=== PATIENT | male | born 1960 | race African-American/Black ===

== ENCOUNTER 2024-01-11 00:54 | Inpatient (IN) | payer MEDICARE, MEDICAID ==
[~2024-01-11] VITALS: Ht 177.8 cm; Wt 98.0 kg
[~2024-01-11 00:54] MED LIST: DILANTIN
[2024-01-11 02:50] LABS: BASOPHILS % 0.3 % (0.0-2.0); EOSINOPHILS % 0.1 % (0.0-5.0); HEMATOCRIT. 44.1 % (42.0-52.0); HEMOGLOBIN. 14.4 g/dL (14.0-18.0); LYMPHOCYTES % 5.8 % (20.0-50.0); MEAN CORPUSCULAR HEMOGLOBIN 30.6 pg (28.0-32.0); MEAN CORPUSCULAR HGB CONC 32.6 g/dL (31.0-37.0); MEAN CORPUSCULAR VOLUME 93.9 fL (80.0-94.0); MEAN PLATELET VOLUME 7.8 fl (7.4-10.4); MONOCYTES % 4.4 % (2.0-8.0); NEUTROPHILS % 89.4 % (40.0-76.0); PLATELET 298 x1000/uL (130-400); RED CELL DISTRIBUTION WIDTH 14.2 % (11.6-14.6); WHITE BLOOD COUNT 13.3 x1000/uL (4.5-11.0)
[2024-01-11 02:55] LABS: CHLORIDE 101 mEq/L (98-107); POTASSIUM 5.2 mEq/L (3.5-5.1); SODIUM 134 mEq/L (136-145)
[2024-01-11 02:56] LABS: CARBON DIOXIDE 27 mEq/L (21-32)
[2024-01-11 02:57] LABS: CALCIUM 9.1 mg/dL (8.7-10.4)
[2024-01-11 03:01] LABS: CREATININE 1.3 mg/dL (0.6-1.3); GLUCOSE 143 mg/dL (70-105)
[2024-01-11 03:02] LABS: UREA NITROGEN BLOOD 15 mg/dL (9-23)
[2024-01-11 03:07] LABS: DIFFERENTIAL COMMENT 1
[2024-01-11 03:34] LABS: BG CARBOXYHEMOGLOBIN 0.4 % (0.5-1.5); BG DEOXYHEMOGLOBIN 0.1 % (0.0-5.0); BG FRACTION INSPIRED OXYGEN 100; BG HCO3 ACT 24.2 mmol/L (22.0-26.0); BG METHEMOGLOBIN 0.4 % (0.0-1.5); BG OXYGEN SATURATION 99.9 % (92.0-98.5); BG OXYHEMOGLOBIN 99.1 % (94.0-97.0); BG PCO2 42.3 mmHg (35.0-45.0); BG PH 7.376 (7.350-7.450); BG PO2 311.8 mmHg (75.0-100.0); BG SAMPLE SITE LEFT RADIAL; BG TOTAL HEMOGLOBIN 14.8 g/dL (12.0-18.0); BG VENT MODE MASK - NRB
[2024-01-11 04:07] LABS: LACTIC ACID 3.6 mmol/L (0.4-2.0); TROPONIN I HIGH SENSITIVITY 179 ng/L (3.0-53)
[2024-01-11] MEDS ORDERED: MIDAZOLAM HCL 2 MG/2 ML VIAL IV ONE (05:00)
[2024-01-11] MEDS ORDERED: PIPERACILLIN/TAZO 3.375G/50ML 50 ML IV ONE (05:45)
[2024-01-11] MEDS ORDERED: VANCOMYCIN 1G PREMIX 200 ML IV ONE (05:45)
[2024-01-11] MEDS: ONDANSETRON HCL 4MG/2ML INJ IV STA (08:33)
[2024-01-11] MEDS: SODIUM CHLORIDE 0.9% 1,000 ML IV ONE (08:33)
[2024-01-11] MEDS: LEVETIRACETAM 1000MG PREMIX 100 ML IV ONE (08:33)
[2024-01-11] MEDS: LEVETIRACETAM 1000MG PREMIX 100 ML IV NR (08:40)
[2024-01-11] MEDS: ONDANSETRON HCL 4MG/2ML INJ IV NR (08:40)
[2024-01-11] MEDS: MIDAZOLAM HCL 2 MG/2 ML VIAL IV NR (08:57)
[2024-01-11] MEDS: PIPERACILLIN/TAZO 3.375G/50ML 50 ML IV NR (09:25)
[2024-01-11] MEDS ORDERED: CLONIDINE 0.1MG TABLET PO PRN (10:00)
[2024-01-11] MEDS: LORAZEPAM 2MG/ML INJ IV PRN (10:18)
[2024-01-11] MEDS: VANCOMYCIN 1G PREMIX 200 ML IV NR (10:19)
[2024-01-11] MEDS: PHENYTOIN SODIUM EXTENDED 100MG CAPSULE PO SCH (10:30)
[2024-01-11 10:38] LABS: POTASSIUM 4.7 mEq/L (3.5-5.1)
[2024-01-11 10:45] LABS: PHENYTOIN 23.9 ug/mL (10-20)
[2024-01-11 10:46] LABS: CREATINE KINASE 111 IU/L (46-171)
[2024-01-11 10:47] LABS: PHOSPHORUS 3.8 mg/dL (2.5-4.9)
[2024-01-11 10:53] LABS: TROPONIN I HIGH SENSITIVITY 432 ng/L (3.0-53)
[2024-01-11] MEDS: FUROSEMIDE 40MG/4ML VIAL IVP NR (11:00)
[2024-01-11] MEDS: OLANZAPINE 10MG TABLET PO SCH (11:00)
[2024-01-11 11:04] LABS: LACTIC ACID 7.1 mmol/L (0.4-2.0)
[2024-01-11] MEDS: LACOSAMIDE 100MG TABLET PO SCH (12:00)
[2024-01-11] MEDS: LEVOTHYROXINE SODIUM 50MCG TABLET PO SCH (12:00)
[2024-01-11 13:22] VITALS: BP 152/90; PULSE 103; RESP 18; TEMP 98.8
[2024-01-11 15:23] LABS: BG BASE EXCESS -1.2 mmol/L (-2.0-2.0); BG CARBOXYHEMOGLOBIN 0.7 % (0.5-1.5); BG DEOXYHEMOGLOBIN 6.7 % (0.0-5.0); BG FRACTION INSPIRED OXYGEN 28; BG HCO3 ACT 23.7 mmol/L (22.0-26.0); BG OXYGEN SATURATION 93.3 % (92.0-98.5); BG OXYHEMOGLOBIN 92.6 % (94.0-97.0); BG PCO2 40.6 mmHg (35.0-45.0); BG PH 7.384 (7.350-7.450); BG PO2 65.2 mmHg (75.0-100.0); BG SAMPLE SITE RIGHT RADIAL; BG TOTAL HEMOGLOBIN 13.3 g/dL (12.0-18.0); BG VENT MODE NASAL CANNULA
[2024-01-11 16:32] VITALS: BP 156/84; PULSE 99; RESP 19; TEMP 99.2
[2024-01-11 18:33] VITALS: BP 156/84; PULSE 99; RESP 19; TEMP 99.3
[2024-01-11 19:20] LABS: LACTIC ACID 3.9 mmol/L (0.4-2.0)
[2024-01-11 19:20] LABS: TROPONIN I HIGH SENSITIVITY 226 ng/L (3.0-53)
[2024-01-11 20:46] VITALS: BP 143/82; PULSE 94; RESP 16; TEMP 98.4
[2024-01-11] MEDS: TRAZODONE HCL 50MG TABLET PO SCH (21:00)
[2024-01-11] MEDS: LEVETIRACETAM 500MG PREMIX 100 ML IV SCH ×2 (21:01→21:37)
[2024-01-11] MEDS ORDERED: DOCU-150 MT (22:10)
[2024-01-11] MEDS ORDERED: MOM MT (22:10)
[2024-01-11] MEDS ORDERED: LEVO50TA8 MT (22:10)
[2024-01-11] MEDS ORDERED: ACET-2708 MT (22:10)
[2024-01-11] MEDS ORDERED: OLAN10TA3 MT (22:10)
[2024-01-11] MEDS ORDERED: LEVE10006 MT (22:10)
[2024-01-11] MEDS ORDERED: CLON0.252 MT (22:10)
[2024-01-11] MEDS ORDERED: PHEN100C12 MT (22:10)
[2024-01-11] MEDS ORDERED: CHOL400D7 PO (22:10)
[2024-01-11] MEDS ORDERED: CRAN400C PO (22:10)
[2024-01-11] MEDS ORDERED: CLON0.1T PO (22:10)
[2024-01-11] MEDS ORDERED: LACO100T2 MT (22:10)
[2024-01-11] MEDS ORDERED: TUSSL MT (22:10)
[2024-01-11] MEDS ORDERED: FAMO20TA8 MT (22:10)
[2024-01-12] VITALS (44 sets, daily range): BP systolic 109–207; BP diastolic 58–99; PULSE 92–132; RESP 9–31; TEMP 97.8–101.1
[2024-01-12] MEDS: LORAZEPAM 2MG/ML INJ IV NR (08:03)
[2024-01-12] MEDS ORDERED: ETOMIDATE 2MG/ML 10ML VIAL IV ONE (09:00)
[2024-01-12] MEDS ORDERED: CEFEPIME 2GM IN DEXT 5% 100ML IV SCH (09:00)
[2024-01-12] MEDS ORDERED: LEVETIRACETAM 1000MG PREMIX 100 ML IV SCH (09:00)
[2024-01-12] MEDS: LEVETIRACETAM 1,500 MG in SODIUM CHLORIDE 0.9% 100 ML IV SCH (09:55)
[2024-01-12] MEDS ORDERED: CEFEPIME 2GM/100ML 100 ML IV SCH (10:00)
[2024-01-12] MEDS: CEFEPIME 2GM/100ML 100 ML IV SCH (14:38)
[2024-01-12] MEDS: LORAZEPAM 2MG/ML INJ IV SCH (15:41)
[2024-01-12 15:59] LABS: BASOPHILS % 0.2 % (0.0-2.0); CHLORIDE 104 mEq/L (98-107); HEMATOCRIT. 37.3 % (42.0-52.0); LYMPHOCYTES % 11.5 % (20.0-50.0); MEAN CORPUSCULAR HEMOGLOBIN 30.6 pg (28.0-32.0); MEAN CORPUSCULAR HGB CONC 32.2 g/dL (31.0-37.0); MEAN CORPUSCULAR VOLUME 95.2 fL (80.0-94.0); MEAN PLATELET VOLUME 8.3 fl (7.4-10.4); MONOCYTES % 7.8 % (2.0-8.0); NEUTROPHILS % 80.5 % (40.0-76.0); PLATELET 243 x1000/uL (130-400); POTASSIUM 3.8 mEq/L (3.5-5.1); RED BLOOD CELL COUNT 3.92 mill/uL (4.7-6.1); RED CELL DISTRIBUTION WIDTH 13.9 % (11.6-14.6); SODIUM 137 mEq/L (136-145); WHITE BLOOD COUNT 14.8 x1000/uL (4.5-11.0)
[2024-01-12 16:00] LABS: CARBON DIOXIDE 22 mEq/L (21-32)
[2024-01-12 16:01] LABS: CALCIUM 8.9 mg/dL (8.7-10.4)
[2024-01-12 16:05] LABS: GLUCOSE 126 mg/dL (70-105); UREA NITROGEN BLOOD 19 mg/dL (9-23)
[2024-01-12 16:06] LABS: PHENYTOIN 20.6 ug/mL (10-20)
[2024-01-12] MEDS: ETOMIDATE 2MG/ML 10ML VIAL IV NR (19:59)
[2024-01-12] MEDS: VECURONIUM BROMIDE 10 MG/VIAL IV NR (20:00)
[2024-01-12] MEDS ORDERED: MIDAZOLAM 100MG/100ML PMX 100 ML IV PRN (21:00)
[2024-01-12] MEDS: MIDAZOLAM 100MG/100ML PMX 100 ML IV PRN (21:07)
[2024-01-12] MEDS: PROPOFOL 10MG/ML 100ML 100 ML IV PRN (21:12)
[2024-01-12] MEDS: ACETAMINOPHEN 325MG TABLET PO PRN (22:02)
[2024-01-12] MEDS ORDERED: DEXT 5%/0.45% NACL 1000ML 1,000 ML IV SCH (22:15)
[2024-01-12 22:16] LABS: BG CARBOXYHEMOGLOBIN 0.6 % (0.5-1.5); BG DEOXYHEMOGLOBIN 5.2 % (0.0-5.0); BG FRACTION INSPIRED OXYGEN 100; BG HCO3 ACT 26.7 mmol/L (22.0-26.0); BG METHEMOGLOBIN 0.2 % (0.0-1.5); BG OXYGEN SATURATION 94.8 % (92.0-98.5); BG PCO2 41.9 mmHg (35.0-45.0); BG PH 7.422 (7.350-7.450); BG PO2 70.1 mmHg (75.0-100.0); BG SAMPLE SITE RIGHT RADIAL; BG TOTAL HEMOGLOBIN 13.6 g/dL (12.0-18.0); BG VENT MODE VENT - AC
[2024-01-12] MEDS: DEXT 5%/0.45% NACL 1000ML 1,000 ML IV SCH (22:48)
[2024-01-13] VITALS (101 sets, daily range): BP systolic 82–145; BP diastolic 53–107; PULSE 78–110; RESP 0–33; TEMP 97.6–100
[2024-01-13 06:11] LABS: EOSINOPHILS % 2.5 % (0.0-5.0); HEMATOCRIT. 33.3 % (42.0-52.0); HEMOGLOBIN. 11.1 g/dL (14.0-18.0); LYMPHOCYTES % 12.3 % (20.0-50.0); MEAN CORPUSCULAR HEMOGLOBIN 31.5 pg (28.0-32.0); MEAN CORPUSCULAR HGB CONC 33.4 g/dL (31.0-37.0); MEAN CORPUSCULAR VOLUME 94.3 fL (80.0-94.0); MEAN PLATELET VOLUME 8.3 fl (7.4-10.4); NEUTROPHILS % 77.2 % (40.0-76.0); PLATELET 208 x1000/uL (130-400); RED BLOOD CELL COUNT 3.53 mill/uL (4.7-6.1); RED CELL DISTRIBUTION WIDTH 13.9 % (11.6-14.6); WHITE BLOOD COUNT 10.5 x1000/uL (4.5-11.0)
[2024-01-13 06:21] LABS: CHLORIDE 104 mEq/L (98-107); POTASSIUM 3.4 mEq/L (3.5-5.1); SODIUM 137 mEq/L (136-145)
[2024-01-13 06:22] LABS: CALCIUM 8.4 mg/dL (8.7-10.4); CARBON DIOXIDE 26 mEq/L (21-32)
[2024-01-13 06:27] LABS: CREATININE 0.9 mg/dL (0.6-1.3); GLUCOSE 136 mg/dL (70-105); TRIGLYCERIDE 169 mg/dL (0-150); UREA NITROGEN BLOOD 23 mg/dL (9-23)
[2024-01-13] MEDS ORDERED: LIDOCAINE HCL 1% 10 MG/ML 10ML VIAL ONE (07:57)
[2024-01-13 10:04] LABS: BG CARBOXYHEMOGLOBIN 0.3 % (0.5-1.5); BG DEOXYHEMOGLOBIN 0.1 % (0.0-5.0); BG FRACTION INSPIRED OXYGEN 100; BG HCO3 ACT 20.6 mmol/L (22.0-26.0); BG METHEMOGLOBIN 0.1 % (0.0-1.5); BG OXYGEN SATURATION 99.9 % (92.0-98.5); BG OXYHEMOGLOBIN 99.5 % (94.0-97.0); BG PCO2 25.5 mmHg (35.0-45.0); BG PH 7.525 (7.350-7.450); BG PO2 302.2 mmHg (75.0-100.0); BG SAMPLE SITE LEFT RADIAL; BG TOTAL HEMOGLOBIN 11.6 g/dL (12.0-18.0); BG TOTAL RESPIRATORY RATE 25 b/min; BG VENT MODE VENT - AC
[2024-01-13] MEDS: POTASSIUM CHLORIDE 20MEQ/PACKET PO SCH (11:28)
[2024-01-13] MEDS: PANTOPRAZOLE SODIUM 40 MG/VIAL IV SCH (11:28)
[2024-01-13] MEDS: AZITHROMYCIN 500 MG TABLET PO SCH (11:34)
[2024-01-13] MEDS: ENOXAPARIN 30MG/0.3ML SYR SUBCUT SCH (11:35)
[2024-01-13 13:52] LABS: BG BASE EXCESS 2.5 mmol/L (-2.0-2.0); BG CARBOXYHEMOGLOBIN 0.3 % (0.5-1.5); BG FRACTION INSPIRED OXYGEN 40; BG HCO3 ACT 27.2 mmol/L (22.0-26.0); BG OXYHEMOGLOBIN 97.7 % (94.0-97.0); BG PCO2 42.7 mmHg (35.0-45.0); BG PH 7.422 (7.350-7.450); BG PO2 104.7 mmHg (75.0-100.0); BG SAMPLE SITE LEFT RADIAL; BG TOTAL RESPIRATORY RATE 13 b/min; BG VENT MODE VENT - AC
[2024-01-13] MEDS: PHENYTOIN SODIUM EXTENDED 100MG CAPSULE PO SCH (14:09)
[2024-01-13 17:19] LABS: CLARITY URINE CLEAR (CLEAR); COLOR URINE DARK YELLOW (YELLOW); GLUCOSE URINE NEGATIVE (NEGATIVE); KETONES URINE TRACE (NEGATIVE); LEUKOCYTE ESTERASE URINE 1+ (NEGATIVE); NITRITE URINE NEGATIVE (NEGATIVE); OCCULT BLOOD URINE NEGATIVE (NEGATIVE); PROTEIN URINE 1+ (NEGATIVE); SPECIFIC GRAVITY URINE 1.031 (1.005-1.030)
[2024-01-13 17:34] LABS: *AMPHETAMINES SCREEN URINE NEGATIVE (NEGATIVE); *BARBITURATES SCREEN URINE NEGATIVE (NEGATIVE); *BENZODIAZEPINES SCREEN URINE PRESUMPTIVE POSITIVE (NEGATIVE); *COCAINE SCREEN URINE NEGATIVE (NEGATIVE); CANNABINOID URINE SCREEN NEGATIVE (NEGATIVE); ECSTASY MDMA SCREEN URINE NEGATIVE (NEGATIVE); METHADONE URINE SCREEN NEGATIVE (NEGATIVE); OPIATES URINE SCREEN NEGATIVE (NEGATIVE); PHENCYCLIDINE URINE SCREEN NEGATIVE (NEGATIVE)
[2024-01-13 17:51] LABS: BACTERIA URINE 1+
[2024-01-13 17:52] LABS: RBC URINE 0-2 /hpf (0-2); SQUAMOUS EPITHELIAL CELL URINE RARE /lpf (RARE/1+)
[2024-01-13 17:52] LABS: PROTHROMBIN TIME 11.2 sec (9.6-11.0)
[2024-01-13] MEDS: PROPOFOL 10MG/ML 100ML 100 ML IV PRN (22:52)
[2024-01-14] VITALS (99 sets, daily range): BP systolic 97–148; BP diastolic 54–95; PULSE 78–101; RESP 9–28; TEMP 97.3–98.4
[2024-01-14] MEDS: DOCUSATE SODIUM 100MG CAPSULE PO PRN (02:00)
[2024-01-14 07:20] LABS: BASOPHILS % 0.3 % (0.0-2.0); EOSINOPHILS % 1.4 % (0.0-5.0); HEMATOCRIT. 35.1 % (42.0-52.0); HEMOGLOBIN. 11.6 g/dL (14.0-18.0); LYMPHOCYTES % 16.5 % (20.0-50.0); MEAN CORPUSCULAR HEMOGLOBIN 31.1 pg (28.0-32.0); MEAN CORPUSCULAR HGB CONC 32.9 g/dL (31.0-37.0); MEAN CORPUSCULAR VOLUME 94.6 fL (80.0-94.0); MEAN PLATELET VOLUME 8.2 fl (7.4-10.4); MONOCYTES % 9.8 % (2.0-8.0); PLATELET 187 x1000/uL (130-400); RED BLOOD CELL COUNT 3.71 mill/uL (4.7-6.1); RED CELL DISTRIBUTION WIDTH 13.9 % (11.6-14.6); WHITE BLOOD COUNT 7.6 x1000/uL (4.5-11.0)
[2024-01-14 07:28] LABS: CARBON DIOXIDE 24 mEq/L (21-32); CHLORIDE 105 mEq/L (98-107); POTASSIUM 3.4 mEq/L (3.5-5.1); SODIUM 137 mEq/L (136-145)
[2024-01-14 07:29] LABS: CALCIUM 8.4 mg/dL (8.7-10.4)
[2024-01-14 07:33] LABS: IRON 34 ug/dL (65-175)
[2024-01-14 07:34] LABS: CREATININE 0.8 mg/dL (0.6-1.3); GLUCOSE 113 mg/dL (70-105); TRIGLYCERIDE 251 mg/dL (0-150); UREA NITROGEN BLOOD 13 mg/dL (9-23)
[2024-01-14 07:36] LABS: T4 FREE 0.96 ng/dL (0.89-1.76); THYROID STIMULATING HORMONE 4.65 uIU/mL (0.55-4.78); TOTAL IRON BINDING CAPACITY 150 ug/dl (250-425); VITAMIN B12 SERUM 451 pg/mL (211-911)
[2024-01-14 07:37] LABS: FOLIC ACID (FOLATE) SERUM 7.17 ng/mL (>5.38)
[2024-01-14] MEDS: KCL 20MEQ/100ML PREMIX 100 ML IV SCH (08:31)
[2024-01-14] MEDS: FOLIC ACID 1MG TABLET PO SCH (08:35)
[2024-01-14] MEDS: CYANOCOBALAMIN 1000MCG/ML VIAL IM SCH (08:35)
[2024-01-14 08:52] LABS: PHENYTOIN 16.8 ug/mL (10-20)
[2024-01-14] MEDS: POLYETHYLENE GLYCOL 3350 (17GM) 1 DOSE PACK PO SCH (08:54)
[2024-01-14 09:00] LABS: BG BASE EXCESS 0.7 mmol/L (-2.0-2.0); BG CARBOXYHEMOGLOBIN 0.3 % (0.5-1.5); BG DEOXYHEMOGLOBIN 1.2 % (0.0-5.0); BG FRACTION INSPIRED OXYGEN 40; BG HCO3 ACT 25.2 mmol/L (22.0-26.0); BG METHEMOGLOBIN 0.2 % (0.0-1.5); BG OXYGEN SATURATION 98.8 % (92.0-98.5); BG OXYHEMOGLOBIN 98.3 % (94.0-97.0); BG PCO2 39.7 mmHg (35.0-45.0); BG PO2 129.8 mmHg (75.0-100.0); BG SAMPLE SITE LEFT RADIAL; BG TOTAL HEMOGLOBIN 11.9 g/dL (12.0-18.0); BG TOTAL RESPIRATORY RATE 16 b/min; BG VENT MODE VENT - AC
[2024-01-14] MEDS: PHENYTOIN 100 MG/4 ML UDC NG SCH (13:06)
[2024-01-15] VITALS (104 sets, daily range): BP systolic 113–149; BP diastolic 62–114; PULSE 83–109; RESP 12–24; TEMP 97.3–99.1
[2024-01-15 05:16] LABS: BASOPHILS % 0.3 % (0.0-2.0); EOSINOPHILS % 1.2 % (0.0-5.0); HEMATOCRIT. 33.4 % (42.0-52.0); HEMOGLOBIN. 11.3 g/dL (14.0-18.0); LYMPHOCYTES % 12.7 % (20.0-50.0); MEAN CORPUSCULAR HEMOGLOBIN 31.7 pg (28.0-32.0); MEAN CORPUSCULAR HGB CONC 33.9 g/dL (31.0-37.0); MEAN CORPUSCULAR VOLUME 93.6 fL (80.0-94.0); MONOCYTES % 10.3 % (2.0-8.0); NEUTROPHILS % 75.5 % (40.0-76.0); PLATELET 218 x1000/uL (130-400); RED BLOOD CELL COUNT 3.57 mill/uL (4.7-6.1); RED CELL DISTRIBUTION WIDTH 13.8 % (11.6-14.6); WHITE BLOOD COUNT 8.3 x1000/uL (4.5-11.0)
[2024-01-15 05:19] LABS: CHLORIDE 104 mEq/L (98-107); POTASSIUM 3.6 mEq/L (3.5-5.1); SODIUM 138 mEq/L (136-145)
[2024-01-15 05:20] LABS: CALCIUM 8.6 mg/dL (8.7-10.4); CARBON DIOXIDE 27 mEq/L (21-32)
[2024-01-15 05:25] LABS: CREATININE 0.7 mg/dL (0.6-1.3); GLUCOSE 114 mg/dL (70-105); UREA NITROGEN BLOOD 12 mg/dL (9-23)
[2024-01-15 05:27] LABS: CREATINE KINASE 310 IU/L (46-171)
[2024-01-15 08:01] LABS: BG BASE EXCESS 1.5 mmol/L (-2.0-2.0); BG CARBOXYHEMOGLOBIN 0.3 % (0.5-1.5); BG DEOXYHEMOGLOBIN 6.1 % (0.0-5.0); BG FRACTION INSPIRED OXYGEN 40; BG HCO3 ACT 25.3 mmol/L (22.0-26.0); BG METHEMOGLOBIN 0.1 % (0.0-1.5); BG OXYGEN SATURATION 93.9 % (92.0-98.5); BG OXYHEMOGLOBIN 93.5 % (94.0-97.0); BG PCO2 37.2 mmHg (35.0-45.0); BG PH 7.451 (7.350-7.450); BG PO2 66.5 mmHg (75.0-100.0); BG SAMPLE SITE RIGHT RADIAL; BG TOTAL HEMOGLOBIN 12.1 g/dL (12.0-18.0); BG VENT MODE VENT - AC
[2024-01-15] MEDS: LACTULOSE 20G/30ML UDC PO PRN (10:05)
[2024-01-15] MEDS: ACETAMINOPHEN 325MG TABLET PO PRN (10:05)
[2024-01-15] MEDS: SODIUM CHLORIDE 0.9% 500 ML IV ONE (10:31)
[2024-01-15 11:08] LABS: CLARITY URINE CLEAR (CLEAR); COLOR URINE DARK YELLOW (YELLOW); GLUCOSE URINE NEGATIVE (NEGATIVE); KETONES URINE TRACE (NEGATIVE); LEUKOCYTE ESTERASE URINE 1+ (NEGATIVE); NITRITE URINE NEGATIVE (NEGATIVE); OCCULT BLOOD URINE NEGATIVE (NEGATIVE); PROTEIN URINE 1+ (NEGATIVE); SPECIFIC GRAVITY URINE 1.027 (1.005-1.030)
[2024-01-15 11:29] LABS: BACTERIA URINE NONE SEEN; RBC URINE 0-2 /hpf (0-2); SQUAMOUS EPITHELIAL CELL URINE 1+ /lpf (RARE/1+); YEAST URINE NONE SEEN
[2024-01-15 12:06] LABS: BG BASE EXCESS 3.7 mmol/L (-2.0-2.0); BG CARBOXYHEMOGLOBIN 0.4 % (0.5-1.5); BG DEOXYHEMOGLOBIN 0.8 % (0.0-5.0); BG FRACTION INSPIRED OXYGEN 40; BG HCO3 ACT 27.7 mmol/L (22.0-26.0); BG METHEMOGLOBIN 0.3 % (0.0-1.5); BG OXYGEN SATURATION 99.2 % (92.0-98.5); BG OXYHEMOGLOBIN 98.5 % (94.0-97.0); BG PCO2 39.6 mmHg (35.0-45.0); BG PH 7.462 (7.350-7.450); BG PO2 137.3 mmHg (75.0-100.0); BG SAMPLE SITE RIGHT RADIAL; BG TOTAL HEMOGLOBIN 12.5 g/dL (12.0-18.0); BG VENT MODE VENT - SIMV
[2024-01-16] VITALS (84 sets, daily range): BP systolic 106–158; BP diastolic 65–105; PULSE 80–101; RESP 10–28; TEMP 98.2–99.4
[2024-01-16 05:03] LABS: BASOPHILS % 0.6 % (0.0-2.0); EOSINOPHILS % 2.3 % (0.0-5.0); HEMATOCRIT. 30.6 % (42.0-52.0); HEMOGLOBIN. 10.5 g/dL (14.0-18.0); LYMPHOCYTES % 14.8 % (20.0-50.0); MEAN CORPUSCULAR HEMOGLOBIN 32.3 pg (28.0-32.0); MEAN CORPUSCULAR HGB CONC 34.4 g/dL (31.0-37.0); MEAN CORPUSCULAR VOLUME 93.9 fL (80.0-94.0); MEAN PLATELET VOLUME 7.7 fl (7.4-10.4); NEUTROPHILS % 70.3 % (40.0-76.0); PLATELET 230 x1000/uL (130-400); RED BLOOD CELL COUNT 3.26 mill/uL (4.7-6.1); RED CELL DISTRIBUTION WIDTH 13.7 % (11.6-14.6); WHITE BLOOD COUNT 9.3 x1000/uL (4.5-11.0)
[2024-01-16 05:06] LABS: CHLORIDE 104 mEq/L (98-107); POTASSIUM 3.9 mEq/L (3.5-5.1); SODIUM 139 mEq/L (136-145)
[2024-01-16 05:07] LABS: CARBON DIOXIDE 29 mEq/L (21-32)
[2024-01-16 05:12] LABS: CREATININE 0.8 mg/dL (0.6-1.3); GLUCOSE 108 mg/dL (70-105); UREA NITROGEN BLOOD 12 mg/dL (9-23)
[2024-01-16 05:14] LABS: CREATINE KINASE 205 IU/L (46-171)
[2024-01-16 10:13] LABS: BG BASE EXCESS 2.4 mmol/L (-2.0-2.0); BG CARBOXYHEMOGLOBIN 0.2 % (0.5-1.5); BG DEOXYHEMOGLOBIN 1.9 % (0.0-5.0); BG HCO3 ACT 26.9 mmol/L (22.0-26.0); BG METHEMOGLOBIN 0.1 % (0.0-1.5); BG OXYGEN SATURATION 98.1 % (92.0-98.5); BG OXYHEMOGLOBIN 97.8 % (94.0-97.0); BG PCO2 41.4 mmHg (35.0-45.0); BG PH 7.431 (7.350-7.450); BG PO2 106.6 mmHg (75.0-100.0); BG SAMPLE SITE RIGHT BRACHIAL; BG TOTAL HEMOGLOBIN 12.6 g/dL (12.0-18.0); BG VENT MODE VENT - AC
[2024-01-16] MEDS: ACETYLCYSTEINE 200MG/ML 20% VIAL 4ML INH SCH (13:35)
[2024-01-16] MEDS: IPRATROPIUM/ALBUTEROL 0.5-3(2.5)MG/3ML NEB HHN PRN (13:35)
[2024-01-17] VITALS (70 sets, daily range): BP systolic 107–146; BP diastolic 64–109; PULSE 71–105; RESP 9–21; TEMP 98.2–98.8
[2024-01-17 04:58] LABS: CARBON DIOXIDE 28 mEq/L (21-32); CHLORIDE 104 mEq/L (98-107); POTASSIUM 3.8 mEq/L (3.5-5.1); SODIUM 140 mEq/L (136-145)
[2024-01-17 04:59] LABS: CALCIUM 9.1 mg/dL (8.7-10.4)
[2024-01-17 05:04] LABS: BASOPHILS % 0.4 % (0.0-2.0); CREATININE 0.7 mg/dL (0.6-1.3); EOSINOPHILS % 3.2 % (0.0-5.0); GLUCOSE 122 mg/dL (70-105); HEMATOCRIT. 31.2 % (42.0-52.0); HEMOGLOBIN. 10.3 g/dL (14.0-18.0); LYMPHOCYTES % 16.2 % (20.0-50.0); MEAN CORPUSCULAR HEMOGLOBIN 31.4 pg (28.0-32.0); MEAN PLATELET VOLUME 7.5 fl (7.4-10.4); MONOCYTES % 11.3 % (2.0-8.0); NEUTROPHILS % 68.9 % (40.0-76.0); PLATELET 228 x1000/uL (130-400); RED BLOOD CELL COUNT 3.28 mill/uL (4.7-6.1); RED CELL DISTRIBUTION WIDTH 13.7 % (11.6-14.6); UREA NITROGEN BLOOD 12 mg/dL (9-23); WHITE BLOOD COUNT 7.5 x1000/uL (4.5-11.0)
[2024-01-18] VITALS (37 sets, daily range): BP systolic 94–136; BP diastolic 56–117; PULSE 72–96; RESP 6–24; TEMP 98.5–99.8
[2024-01-18 06:09] LABS: BASOPHILS % 0.5 % (0.0-2.0); EOSINOPHILS % 2.8 % (0.0-5.0); HEMATOCRIT. 32.2 % (42.0-52.0); HEMOGLOBIN. 10.6 g/dL (14.0-18.0); LYMPHOCYTES % 17.6 % (20.0-50.0); MEAN CORPUSCULAR HEMOGLOBIN 31.2 pg (28.0-32.0); MEAN CORPUSCULAR HGB CONC 32.9 g/dL (31.0-37.0); MEAN CORPUSCULAR VOLUME 94.7 fL (80.0-94.0); MEAN PLATELET VOLUME 7.5 fl (7.4-10.4); MONOCYTES % 10.5 % (2.0-8.0); NEUTROPHILS % 68.6 % (40.0-76.0); PLATELET 255 x1000/uL (130-400); RED CELL DISTRIBUTION WIDTH 13.9 % (11.6-14.6); WHITE BLOOD COUNT 5.7 x1000/uL (4.5-11.0)
[2024-01-18 06:16] LABS: CARBON DIOXIDE 28 mEq/L (21-32); CHLORIDE 105 mEq/L (98-107); POTASSIUM 3.9 mEq/L (3.5-5.1); SODIUM 139 mEq/L (136-145)
[2024-01-18 06:22] LABS: CREATININE 0.7 mg/dL (0.6-1.3); GLUCOSE 130 mg/dL (70-105); UREA NITROGEN BLOOD 13 mg/dL (9-23)
[2024-01-18 08:44] LABS: BG BASE EXCESS 5.3 mmol/L (-2.0-2.0); BG CARBOXYHEMOGLOBIN 0.3 % (0.5-1.5); BG DEOXYHEMOGLOBIN 1.7 % (0.0-5.0); BG FRACTION INSPIRED OXYGEN 40; BG HCO3 ACT 30.6 mmol/L (22.0-26.0); BG OXYGEN SATURATION 98.3 % (92.0-98.5); BG PCO2 48.2 mmHg (35.0-45.0); BG SAMPLE SITE RIGHT RADIAL; BG TOTAL HEMOGLOBIN 11.2 g/dL (12.0-18.0); BG TOTAL RESPIRATORY RATE 9 b/min; BG VENT MODE VENT - SIMV
[2024-01-19] VITALS (56 sets, daily range): BP systolic 107–133; BP diastolic 67–83; PULSE 65–90; RESP 7–20; TEMP 97.6–98.8
[2024-01-19 06:10] LABS: BASOPHILS % 0.9 % (0.0-2.0); EOSINOPHILS % 3.3 % (0.0-5.0); HEMATOCRIT. 31.5 % (42.0-52.0); HEMOGLOBIN. 10.4 g/dL (14.0-18.0); LYMPHOCYTES % 20.6 % (20.0-50.0); MEAN CORPUSCULAR HEMOGLOBIN 31.5 pg (28.0-32.0); MEAN CORPUSCULAR HGB CONC 33.2 g/dL (31.0-37.0); MEAN CORPUSCULAR VOLUME 94.9 fL (80.0-94.0); MEAN PLATELET VOLUME 7.3 fl (7.4-10.4); MONOCYTES % 11.9 % (2.0-8.0); NEUTROPHILS % 63.3 % (40.0-76.0); PLATELET 279 x1000/uL (130-400); RED BLOOD CELL COUNT 3.32 mill/uL (4.7-6.1); RED CELL DISTRIBUTION WIDTH 13.7 % (11.6-14.6); WHITE BLOOD COUNT 4.9 x1000/uL (4.5-11.0)
[2024-01-19 06:21] LABS: CHLORIDE 104 mEq/L (98-107); POTASSIUM 4.1 mEq/L (3.5-5.1); SODIUM 138 mEq/L (136-145)
[2024-01-19 06:22] LABS: CARBON DIOXIDE 30 mEq/L (21-32)
[2024-01-19 06:23] LABS: CALCIUM 9.1 mg/dL (8.7-10.4)
[2024-01-19 06:27] LABS: CREATININE 0.6 mg/dL (0.6-1.3); GLUCOSE 122 mg/dL (70-105); UREA NITROGEN BLOOD 13 mg/dL (9-23)
[2024-01-19 07:35] LABS: BG BASE EXCESS 5.1 mmol/L (-2.0-2.0); BG CARBOXYHEMOGLOBIN 0.1 % (0.5-1.5); BG DEOXYHEMOGLOBIN 0.4 % (0.0-5.0); BG FRACTION INSPIRED OXYGEN 40; BG HCO3 ACT 29.2 mmol/L (22.0-26.0); BG METHEMOGLOBIN 0.3 % (0.0-1.5); BG OXYGEN SATURATION 99.6 % (92.0-98.5); BG OXYHEMOGLOBIN 99.2 % (94.0-97.0); BG PCO2 41.3 mmHg (35.0-45.0); BG PH 7.468 (7.350-7.450); BG PO2 166.2 mmHg (75.0-100.0); BG SAMPLE SITE RIGHT RADIAL; BG TOTAL HEMOGLOBIN 10.6 g/dL (12.0-18.0); BG VENT MODE VENT - SIMV/VC
[2024-01-20] VITALS (55 sets, daily range): BP systolic 103–136; BP diastolic 65–93; PULSE 68–87; RESP 10–19; TEMP 97.5–99
[2024-01-20 05:31] LABS: BASOPHILS % 0.7 % (0.0-2.0); EOSINOPHILS % 1.7 % (0.0-5.0); HEMATOCRIT. 32.4 % (42.0-52.0); HEMOGLOBIN. 10.7 g/dL (14.0-18.0); LYMPHOCYTES % 22.4 % (20.0-50.0); MEAN CORPUSCULAR HEMOGLOBIN 31.3 pg (28.0-32.0); MEAN CORPUSCULAR VOLUME 94.9 fL (80.0-94.0); MEAN PLATELET VOLUME 7.6 fl (7.4-10.4); MONOCYTES % 11.2 % (2.0-8.0); PLATELET 319 x1000/uL (130-400); RED BLOOD CELL COUNT 3.42 mill/uL (4.7-6.1); RED CELL DISTRIBUTION WIDTH 13.6 % (11.6-14.6)
[2024-01-20 05:47] LABS: CHLORIDE 102 mEq/L (98-107); POTASSIUM 4.2 mEq/L (3.5-5.1); SODIUM 137 mEq/L (136-145)
[2024-01-20 05:48] LABS: CARBON DIOXIDE 30 mEq/L (21-32)
[2024-01-20 05:49] LABS: CALCIUM 9.2 mg/dL (8.7-10.4)
[2024-01-20 05:53] LABS: CREATININE 0.7 mg/dL (0.6-1.3); GLUCOSE 104 mg/dL (70-105)
[2024-01-20 05:54] LABS: UREA NITROGEN BLOOD 14 mg/dL (9-23)
[2024-01-21] VITALS (88 sets, daily range): BP systolic 88–131; BP diastolic 43–92; PULSE 63–101; RESP 10–25; TEMP 97.5–99.1
[2024-01-21 07:06] LABS: BASOPHILS % 0.9 % (0.0-2.0); EOSINOPHILS % 1.7 % (0.0-5.0); HEMATOCRIT. 30.9 % (42.0-52.0); HEMOGLOBIN. 10.2 g/dL (14.0-18.0); LYMPHOCYTES % 19.3 % (20.0-50.0); MEAN CORPUSCULAR HEMOGLOBIN 31.3 pg (28.0-32.0); MEAN CORPUSCULAR VOLUME 94.7 fL (80.0-94.0); MEAN PLATELET VOLUME 7.2 fl (7.4-10.4); MONOCYTES % 8.7 % (2.0-8.0); NEUTROPHILS % 69.4 % (40.0-76.0); PLATELET 287 x1000/uL (130-400); RED BLOOD CELL COUNT 3.27 mill/uL (4.7-6.1); RED CELL DISTRIBUTION WIDTH 13.3 % (11.6-14.6); WHITE BLOOD COUNT 5.4 x1000/uL (4.5-11.0)
[2024-01-21 07:22] LABS: CALCIUM 9.1 mg/dL (8.7-10.4); CHLORIDE 102 mEq/L (98-107); POTASSIUM 3.9 mEq/L (3.5-5.1); SODIUM 138 mEq/L (136-145)
[2024-01-21 07:23] LABS: CARBON DIOXIDE 30 mEq/L (21-32)
[2024-01-21 07:28] LABS: CREATININE 0.7 mg/dL (0.6-1.3); GLUCOSE 117 mg/dL (70-105); UREA NITROGEN BLOOD 15 mg/dL (9-23)
[2024-01-22] VITALS (76 sets, daily range): BP systolic 92–139; BP diastolic 58–104; PULSE 66–100; RESP 7–19; TEMP 97.6–99
[2024-01-22 05:22] LABS: BASOPHILS % 0.8 % (0.0-2.0); EOSINOPHILS % 1.7 % (0.0-5.0); HEMATOCRIT. 29.4 % (42.0-52.0); HEMOGLOBIN. 9.8 g/dL (14.0-18.0); LYMPHOCYTES % 20.5 % (20.0-50.0); MEAN CORPUSCULAR HEMOGLOBIN 31.6 pg (28.0-32.0); MEAN CORPUSCULAR HGB CONC 33.2 g/dL (31.0-37.0); MEAN CORPUSCULAR VOLUME 95.1 fL (80.0-94.0); MEAN PLATELET VOLUME 7.1 fl (7.4-10.4); MONOCYTES % 7.7 % (2.0-8.0); NEUTROPHILS % 69.3 % (40.0-76.0); PLATELET 344 x1000/uL (130-400); RED BLOOD CELL COUNT 3.09 mill/uL (4.7-6.1); RED CELL DISTRIBUTION WIDTH 13.7 % (11.6-14.6); WHITE BLOOD COUNT 7.6 x1000/uL (4.5-11.0)
[2024-01-22 05:41] LABS: CARBON DIOXIDE 28 mEq/L (21-32); CHLORIDE 103 mEq/L (98-107); POTASSIUM 4.2 mEq/L (3.5-5.1); SODIUM 136 mEq/L (136-145)
[2024-01-22 05:43] LABS: CALCIUM 8.9 mg/dL (8.7-10.4)
[2024-01-22 05:47] LABS: CREATININE 0.6 mg/dL (0.6-1.3); GLUCOSE 110 mg/dL (70-105); UREA NITROGEN BLOOD 11 mg/dL (9-23)
[2024-01-22 05:55] LABS: PARTIAL THROMBOPLASTIN TIME 29.9 sec (23.4-31.0); PROTHROMBIN TIME 11.2 sec (9.6-11.0)
[2024-01-22 09:15] LABS: BG BASE EXCESS 4.8 mmol/L (-2.0-2.0); BG DEOXYHEMOGLOBIN 0.6 % (0.0-5.0); BG FRACTION INSPIRED OXYGEN 35; BG METHEMOGLOBIN 0.3 % (0.0-1.5); BG OXYGEN SATURATION 99.4 % (92.0-98.5); BG OXYHEMOGLOBIN 99.1 % (94.0-97.0); BG PCO2 41.6 mmHg (35.0-45.0); BG PH 7.461 (7.350-7.450); BG PO2 172.6 mmHg (75.0-100.0); BG SAMPLE SITE RIGHT RADIAL; BG TOTAL HEMOGLOBIN 10.2 g/dL (12.0-18.0); BG VENT MODE VENT - SIMV/VC
[2024-01-22] MEDS: LEVETIRACETAM 500MG/5ML CUP PO SCH (20:58)
[2024-01-23] VITALS (53 sets, daily range): BP systolic 95–153; BP diastolic 57–112; PULSE 61–103; RESP 3–18; TEMP 97.6–98.6
[2024-01-23 05:16] LABS: BASOPHILS % 0.7 % (0.0-2.0); EOSINOPHILS % 1.4 % (0.0-5.0); HEMATOCRIT. 31.4 % (42.0-52.0); HEMOGLOBIN. 10.4 g/dL (14.0-18.0); LYMPHOCYTES % 19.6 % (20.0-50.0); MEAN CORPUSCULAR HEMOGLOBIN 31.4 pg (28.0-32.0); MEAN CORPUSCULAR HGB CONC 33.1 g/dL (31.0-37.0); MEAN CORPUSCULAR VOLUME 94.9 fL (80.0-94.0); MEAN PLATELET VOLUME 7.2 fl (7.4-10.4); MONOCYTES % 7.9 % (2.0-8.0); NEUTROPHILS % 70.4 % (40.0-76.0); PLATELET 354 x1000/uL (130-400); RED BLOOD CELL COUNT 3.31 mill/uL (4.7-6.1); RED CELL DISTRIBUTION WIDTH 13.4 % (11.6-14.6); WHITE BLOOD COUNT 8.3 x1000/uL (4.5-11.0)
[2024-01-23 05:29] LABS: CARBON DIOXIDE 31 mEq/L (21-32); CHLORIDE 103 mEq/L (98-107); POTASSIUM 4.2 mEq/L (3.5-5.1); SODIUM 138 mEq/L (136-145)
[2024-01-23 05:30] LABS: CALCIUM 9.2 mg/dL (8.7-10.4)
[2024-01-23 05:35] LABS: CREATININE 0.6 mg/dL (0.6-1.3); GLUCOSE 104 mg/dL (70-105); UREA NITROGEN BLOOD 15 mg/dL (9-23)
[2024-01-23 05:36] LABS: PHENYTOIN 7.5 ug/mL (10-20)
[2024-01-23] MEDS: LEVETIRACETAM 1,500 MG in SODIUM CHLORIDE 0.9% 100 ML IV NR (08:33)
[2024-01-23] MEDS ORDERED: LEVETIRACETAM 1,000MG in NACL 100ML PREMIX IV SCH (09:00)
[2024-01-23] MEDS ORDERED: ROCURONIUM BROMIDE 10MG/ML VIAL 5ML IV ONE (19:15)
[2024-01-23] MEDS ORDERED: DEXAMETHASONE 4MG/ML 1ML VIAL ONE (19:46)
[2024-01-23] MEDS ORDERED: ONDANSETRON HCL 4MG/2ML INJ ONE (19:46)
[2024-01-23] MEDS ORDERED: MIDAZOLAM HCL 2 MG/2 ML VIAL ONE (20:13)
[2024-01-23] MEDS: PHENYTOIN SODIUM 100MG/2ML VIAL IV SCH (21:05)
[2024-01-24] VITALS (43 sets, daily range): BP systolic 103–155; BP diastolic 67–102; PULSE 78–113; RESP 12–34; TEMP 96.9–98.8
[2024-01-24 05:49] LABS: BASOPHILS % 0.5 % (0.0-2.0); EOSINOPHILS % 0.1 % (0.0-5.0); HEMATOCRIT. 33.2 % (42.0-52.0); HEMOGLOBIN. 11.2 g/dL (14.0-18.0); LYMPHOCYTES % 7.1 % (20.0-50.0); MEAN CORPUSCULAR HEMOGLOBIN 31.9 pg (28.0-32.0); MEAN CORPUSCULAR HGB CONC 33.7 g/dL (31.0-37.0); MEAN CORPUSCULAR VOLUME 94.6 fL (80.0-94.0); MEAN PLATELET VOLUME 7.7 fl (7.4-10.4); MONOCYTES % 5.8 % (2.0-8.0); NEUTROPHILS % 86.5 % (40.0-76.0); PLATELET 371 x1000/uL (130-400); RED BLOOD CELL COUNT 3.51 mill/uL (4.7-6.1); RED CELL DISTRIBUTION WIDTH 13.3 % (11.6-14.6)
[2024-01-24 05:55] LABS: INR 1.1; PROTHROMBIN TIME 11.7 sec (9.6-11.0)
[2024-01-24 05:56] LABS: CARBON DIOXIDE 29 mEq/L (21-32); CHLORIDE 103 mEq/L (98-107); POTASSIUM 4.1 mEq/L (3.5-5.1); SODIUM 138 mEq/L (136-145)
[2024-01-24 05:57] LABS: CALCIUM 9.2 mg/dL (8.7-10.4)
[2024-01-24 06:02] LABS: CREATININE 0.7 mg/dL (0.6-1.3); GLUCOSE 109 mg/dL (70-105); UREA NITROGEN BLOOD 16 mg/dL (9-23)
[2024-01-24 06:04] LABS: ALANINE AMINOTRANSFERASE 121 IU/L (10-49); ALBUMIN 4.5 g/dL (3.2-4.8); ASPARTATE AMINOTRANSFERASE 57 IU/L (<34); BILIRUBIN TOTAL 0.4 mg/dL (0.1-1.0); PROTEIN TOTAL 7.7 g/dL (6.0-8.3)
[2024-01-24] MEDS: CEFAZOLIN 1000MG PREMIX 50 ML IV NR (13:50)
[2024-01-25] VITALS (61 sets, daily range): BP systolic 100–133; BP diastolic 61–91; PULSE 73–96; RESP 8–22; TEMP 98.4–98.7
[2024-01-25 06:19] LABS: BASOPHILS % 0.6 % (0.0-2.0); EOSINOPHILS % 0.9 % (0.0-5.0); HEMATOCRIT. 33.7 % (42.0-52.0); HEMOGLOBIN. 11.1 g/dL (14.0-18.0); LYMPHOCYTES % 9.2 % (20.0-50.0); MEAN CORPUSCULAR HEMOGLOBIN 31.9 pg (28.0-32.0); MEAN CORPUSCULAR VOLUME 96.8 fL (80.0-94.0); MEAN PLATELET VOLUME 8.5 fl (7.4-10.4); MONOCYTES % 5.4 % (2.0-8.0); NEUTROPHILS % 83.9 % (40.0-76.0); PLATELET 220 x1000/uL (130-400); RED BLOOD CELL COUNT 3.48 mill/uL (4.7-6.1); RED CELL DISTRIBUTION WIDTH 13.8 % (11.6-14.6); WHITE BLOOD COUNT 11.9 x1000/uL (4.5-11.0)
[2024-01-25 06:25] LABS: CHLORIDE 101 mEq/L (98-107); POTASSIUM 4.9 mEq/L (3.5-5.1); SODIUM 136 mEq/L (136-145)
[2024-01-25 06:26] LABS: CALCIUM 9.3 mg/dL (8.7-10.4); CARBON DIOXIDE 26 mEq/L (21-32)
[2024-01-25 06:31] LABS: CREATININE 0.8 mg/dL (0.6-1.3); GLUCOSE 104 mg/dL (70-105); UREA NITROGEN BLOOD 15 mg/dL (9-23)
[2024-01-26] VITALS (56 sets, daily range): BP systolic 99–133; BP diastolic 61–87; PULSE 71–98; RESP 8–26; TEMP 97.8–98.7
[2024-01-26 06:21] LABS: BASOPHILS % 0.2 % (0.0-2.0); EOSINOPHILS % 1.7 % (0.0-5.0); HEMATOCRIT. 32.9 % (42.0-52.0); HEMOGLOBIN. 10.9 g/dL (14.0-18.0); LYMPHOCYTES % 13.5 % (20.0-50.0); MEAN CORPUSCULAR HEMOGLOBIN 31.7 pg (28.0-32.0); MEAN CORPUSCULAR HGB CONC 33.1 g/dL (31.0-37.0); MEAN CORPUSCULAR VOLUME 95.7 fL (80.0-94.0); MEAN PLATELET VOLUME 7.6 fl (7.4-10.4); MONOCYTES % 9.1 % (2.0-8.0); NEUTROPHILS % 75.5 % (40.0-76.0); PLATELET 365 x1000/uL (130-400); RED BLOOD CELL COUNT 3.44 mill/uL (4.7-6.1); RED CELL DISTRIBUTION WIDTH 13.5 % (11.6-14.6); WHITE BLOOD COUNT 7.7 x1000/uL (4.5-11.0)
[2024-01-26 06:23] LABS: CHLORIDE 103 mEq/L (98-107); POTASSIUM 4.1 mEq/L (3.5-5.1); SODIUM 137 mEq/L (136-145)
[2024-01-26 06:24] LABS: CALCIUM 9.4 mg/dL (8.7-10.4); CARBON DIOXIDE 30 mEq/L (21-32)
[2024-01-26 06:29] LABS: CREATININE 0.7 mg/dL (0.6-1.3); GLUCOSE 107 mg/dL (70-105); UREA NITROGEN BLOOD 16 mg/dL (9-23)
[2024-01-26 06:31] LABS: ALANINE AMINOTRANSFERASE 167 IU/L (10-49); ALBUMIN 4.2 g/dL (3.2-4.8); ASPARTATE AMINOTRANSFERASE 68 IU/L (<34); BILIRUBIN TOTAL 0.4 mg/dL (0.1-1.0)
[2024-01-26 06:32] LABS: PROTEIN TOTAL 7.4 g/dL (6.0-8.3)
[2024-01-26 07:20] LABS: PARTIAL THROMBOPLASTIN TIME 32.9 sec (23.4-31.0); PROTHROMBIN TIME 11.6 sec (9.6-11.0)
[2024-01-26 10:04] LABS: BG BASE EXCESS 3.5 mmol/L (-2.0-2.0); BG FRACTION INSPIRED OXYGEN 35; BG PCO2 42.1 mmHg (35.0-45.0); BG PH 7.441 (7.350-7.450); BG PO2 112.4 mmHg (75.0-100.0); BG SAMPLE SITE RIGHT RADIAL; BG VENT MODE VENT - AC
[2024-01-26] MEDS ORDERED: LIDOCAINE HCL 1% 10 MG/ML 10ML VIAL ONE (10:43)
[2024-01-26] MEDS ORDERED: CEFAZOLIN 1000MG PREMIX 50 ML IV NR (13:00)
[2024-01-26] MEDS: DEXT 5%/0.45% NACL 1000ML 1,000 ML IV SCH (14:57)
[2024-01-26] MEDS ORDERED: PROPOFOL 200MG/20ML VIAL IV ONE (15:32)
[2024-01-26] MEDS ORDERED: CEFAZOLIN SODIUM 2000MG/VIAL IJ STA (16:46)
[2024-01-26] MEDS: CEFAZOLIN 2GM/100ML 100 ML IV NR (18:20)
[2024-01-27] VITALS (24 sets, daily range): BP systolic 109–171; BP diastolic 76–101; PULSE 82–111; RESP 12–25; TEMP 97.8–99.4
[2024-01-27 08:36] LABS: BASOPHILS % 0.4 % (0.0-2.0); EOSINOPHILS % 1.5 % (0.0-5.0); HEMOGLOBIN. 10.5 g/dL (14.0-18.0); LYMPHOCYTES % 9.3 % (20.0-50.0); MEAN CORPUSCULAR HEMOGLOBIN 31.3 pg (28.0-32.0); MEAN CORPUSCULAR HGB CONC 32.9 g/dL (31.0-37.0); MEAN CORPUSCULAR VOLUME 95.1 fL (80.0-94.0); MONOCYTES % 6.9 % (2.0-8.0); NEUTROPHILS % 81.9 % (40.0-76.0); RED BLOOD CELL COUNT 3.36 mill/uL (4.7-6.1); RED CELL DISTRIBUTION WIDTH 13.6 % (11.6-14.6)
[2024-01-27 08:40] LABS: CARBON DIOXIDE 26 mEq/L (21-32); CHLORIDE 102 mEq/L (98-107); POTASSIUM 4.3 mEq/L (3.5-5.1); SODIUM 136 mEq/L (136-145)
[2024-01-27 08:41] LABS: CALCIUM 9.4 mg/dL (8.7-10.4)
[2024-01-27 08:43] LABS: DIFFERENTIAL COMMENT 1
[2024-01-27 08:45] LABS: CREATININE 0.6 mg/dL (0.6-1.3)
[2024-01-27 08:46] LABS: GLUCOSE 101 mg/dL (70-105); UREA NITROGEN BLOOD 12 mg/dL (9-23)
[2024-01-27 11:34] LABS: PLATELET 405 x1000/uL (130-400)
[2024-01-27] MEDS: PHENYTOIN 100 MG/4 ML UDC NG SCH (17:05)
[2024-01-27] MEDS ORDERED: SODIUM CHLORIDE 3% FOR INH 4ML NEB INH PRN (17:45)
[2024-01-27] MEDS ORDERED: IPRATROPIUM/ALBUTEROL 0.5-3(2.5)MG/3ML NEB HHN PRN (17:45)
[2024-01-27] MEDS: IPRATROPIUM/ALBUTEROL 0.5-3(2.5)MG/3ML NEB HHN SCH (20:17)
[2024-01-27] MEDS: ACETYLCYSTEINE 200MG/ML 20% VIAL 4ML PO PRN (20:28)
[2024-01-28] VITALS (24 sets, daily range): BP systolic 116–147; BP diastolic 71–101; PULSE 92–115; RESP 13–30; TEMP 97.4–100.4
[2024-01-28 07:37] LABS: CALCIUM 9.6 mg/dL (8.7-10.4); CARBON DIOXIDE 26 mEq/L (21-32); CHLORIDE 101 mEq/L (98-107); POTASSIUM 4.1 mEq/L (3.5-5.1); SODIUM 136 mEq/L (136-145)
[2024-01-28 07:40] LABS: HEMATOCRIT. 32.3 % (42.0-52.0); HEMOGLOBIN. 10.8 g/dL (14.0-18.0); MEAN CORPUSCULAR HEMOGLOBIN 31.5 pg (28.0-32.0); MEAN CORPUSCULAR HGB CONC 33.3 g/dL (31.0-37.0); MEAN CORPUSCULAR VOLUME 94.5 fL (80.0-94.0); MEAN PLATELET VOLUME 8.1 fl (7.4-10.4); PLATELET 465 x1000/uL (130-400); RED BLOOD CELL COUNT 3.41 mill/uL (4.7-6.1)
[2024-01-28 07:43] LABS: CREATININE 0.7 mg/dL (0.6-1.3); GLUCOSE 148 mg/dL (70-105); UREA NITROGEN BLOOD 15 mg/dL (9-23)
[2024-01-28 08:13] LABS: DIFFERENTIAL COMMENT 1
[2024-01-28 09:19] LABS: BG BASE EXCESS 1.4 mmol/L (-2.0-2.0); BG FRACTION INSPIRED OXYGEN 35; BG HCO3 ACT 25.2 mmol/L (22.0-26.0); BG METHEMOGLOBIN 0.3 % (0.0-1.5); BG OXYHEMOGLOBIN 97.7 % (94.0-97.0); BG PCO2 36.8 mmHg (35.0-45.0); BG PH 7.454 (7.350-7.450); BG PO2 103.9 mmHg (75.0-100.0); BG SAMPLE SITE RIGHT RADIAL; BG TOTAL HEMOGLOBIN 11.3 g/dL (12.0-18.0); BG VENT MODE VENT - AC
[2024-01-28 13:28] LABS: PLATELET ESTIMATE INCREASED
[2024-01-28] MEDS: ONDANSETRON HCL 4MG/2ML INJ IV PRN (13:41)
[2024-01-28] MEDS: METOCLOPRAMIDE HCL 10MG/2ML VIAL IV SCH (18:58)
[2024-01-29] VITALS (24 sets, daily range): BP systolic 122–149; BP diastolic 81–101; PULSE 98–124; RESP 11–29; TEMP 97.4–98.4
[2024-01-29] MEDS: DEXT 5%/0.9% NACL 1,000 ML IV SCH (17:00)
[2024-01-30] VITALS (24 sets, daily range): BP systolic 102–133; BP diastolic 77–94; PULSE 99–124; RESP 10–30; TEMP 97.7–99.3
[2024-01-30] MEDS: BLOOD SUGAR DIAGNOSTIC STRIP TEST SCH
[2024-01-30] MEDS ORDERED: DEXTROSE 50% WATER 50ML SYRINGE IV PRN (00:45)
[2024-01-30 07:28] LABS: CHLORIDE 104 mEq/L (98-107); POTASSIUM 4.5 mEq/L (3.5-5.1); SODIUM 138 mEq/L (136-145)
[2024-01-30 07:29] LABS: CALCIUM 9.2 mg/dL (8.7-10.4); CARBON DIOXIDE 25 mEq/L (21-32)
[2024-01-30 07:34] LABS: CREATININE 0.8 mg/dL (0.6-1.3); GLUCOSE 131 mg/dL (70-105); UREA NITROGEN BLOOD 19 mg/dL (9-23)
[2024-01-30 07:45] LABS: BASOPHILS % 0.3 % (0.0-2.0); EOSINOPHILS % 0.1 % (0.0-5.0); HEMATOCRIT. 32.8 % (42.0-52.0); HEMOGLOBIN. 10.9 g/dL (14.0-18.0); LYMPHOCYTES % 9.2 % (20.0-50.0); MEAN CORPUSCULAR HEMOGLOBIN 31.5 pg (28.0-32.0); MEAN CORPUSCULAR HGB CONC 33.2 g/dL (31.0-37.0); MEAN CORPUSCULAR VOLUME 94.7 fL (80.0-94.0); MONOCYTES % 10.1 % (2.0-8.0); NEUTROPHILS % 80.3 % (40.0-76.0); PLATELET 505 x1000/uL (130-400); RED BLOOD CELL COUNT 3.46 mill/uL (4.7-6.1); WHITE BLOOD COUNT 10.3 x1000/uL (4.5-11.0)
[2024-01-30] MEDS ORDERED: DIATR MEGLU/DIATRIZOATE SOLN 30ML PO SCH (12:00)
[2024-01-31] VITALS (24 sets, daily range): BP systolic 106–129; BP diastolic 62–91; PULSE 86–109; RESP 13–22; TEMP 98–99.1
[2024-01-31 06:06] LABS: BASOPHILS % 0.5 % (0.0-2.0); EOSINOPHILS % 0.8 % (0.0-5.0); HEMATOCRIT. 28.9 % (42.0-52.0); HEMOGLOBIN. 9.5 g/dL (14.0-18.0); LYMPHOCYTES % 12.9 % (20.0-50.0); MEAN CORPUSCULAR HGB CONC 32.7 g/dL (31.0-37.0); MEAN CORPUSCULAR VOLUME 94.6 fL (80.0-94.0); MEAN PLATELET VOLUME 7.8 fl (7.4-10.4); MONOCYTES % 12.1 % (2.0-8.0); NEUTROPHILS % 73.7 % (40.0-76.0); PLATELET 429 x1000/uL (130-400); RED BLOOD CELL COUNT 3.05 mill/uL (4.7-6.1); RED CELL DISTRIBUTION WIDTH 13.8 % (11.6-14.6); WHITE BLOOD COUNT 8.5 x1000/uL (4.5-11.0)
[2024-01-31 06:10] LABS: CARBON DIOXIDE 27 mEq/L (21-32); CHLORIDE 105 mEq/L (98-107); POTASSIUM 4.2 mEq/L (3.5-5.1); SODIUM 139 mEq/L (136-145)
[2024-01-31 06:11] LABS: CALCIUM 9.2 mg/dL (8.7-10.4)
[2024-01-31 06:16] LABS: CREATININE 0.8 mg/dL (0.6-1.3); GLUCOSE 112 mg/dL (70-105); UREA NITROGEN BLOOD 23 mg/dL (9-23)
[2024-01-31] MEDS ORDERED: LACTULOSE 20G/30ML UDC PO PRN (14:30)
[2024-01-31] MEDS ORDERED: BISACODYL 10MG SUPP PR PRN (14:30)
[2024-01-31] MEDS: DOCUSATE SODIUM SUGAR FREE 100MG/10ML UDC NG SCH (16:50)
[2024-02-01] VITALS (21 sets, daily range): BP systolic 103–144; BP diastolic 70–99; PULSE 81–104; RESP 13–26; TEMP 97.3–99
[2024-02-01 07:34] LABS: CHLORIDE 105 mEq/L (98-107); POTASSIUM 3.8 mEq/L (3.5-5.1); SODIUM 140 mEq/L (136-145)
[2024-02-01 07:35] LABS: CARBON DIOXIDE 26 mEq/L (21-32)
[2024-02-01 07:40] LABS: BASOPHILS % 0.5 % (0.0-2.0); CREATININE 0.7 mg/dL (0.6-1.3); EOSINOPHILS % 1.1 % (0.0-5.0); GLUCOSE 111 mg/dL (70-105); HEMATOCRIT. 28.5 % (42.0-52.0); HEMOGLOBIN. 9.2 g/dL (14.0-18.0); LYMPHOCYTES % 11.9 % (20.0-50.0); MEAN CORPUSCULAR HEMOGLOBIN 30.7 pg (28.0-32.0); MEAN CORPUSCULAR HGB CONC 32.2 g/dL (31.0-37.0); MEAN CORPUSCULAR VOLUME 95.1 fL (80.0-94.0); MEAN PLATELET VOLUME 7.7 fl (7.4-10.4); MONOCYTES % 10.9 % (2.0-8.0); NEUTROPHILS % 75.6 % (40.0-76.0); PLATELET 425 x1000/uL (130-400); RED BLOOD CELL COUNT 2.99 mill/uL (4.7-6.1); UREA NITROGEN BLOOD 18 mg/dL (9-23); WHITE BLOOD COUNT 7.6 x1000/uL (4.5-11.0)
[2024-02-01] MEDS: PHENYTOIN 100 MG/4 ML UDC NG SCH (20:45)
[2024-02-02] VITALS (20 sets, daily range): BP systolic 104–130; BP diastolic 60–83; PULSE 74–91; RESP 11–24; TEMP 97–98.4; O2SAT 100
[2024-02-02] MEDS ORDERED: PANT40VI IV (15:50)
[2024-02-02] MEDS ORDERED: FOLI-43 PO (15:50)
[2024-02-02] MEDS ORDERED: [UNRECOGNIZED DRUG - CODE] NG (15:50)
[2024-02-02] MEDS ORDERED: LACO100T2 PO (15:50)
[2024-02-02] MEDS ORDERED: KEPPSOL PO (15:50)
[2024-02-02] MEDS ORDERED: LOV30 SUBCUT (15:50)
[2024-02-02] MEDS ORDERED: LEVO50TA8 PO (15:50)
== END 2024-02-02 21:00 | DRG 3 ==
LOC: ER 00:54 → 7WST 04:45 → EDBEDREQTM 05:03 → EDBEDREQ 05:03 → EDBEDREQSVC 05:03 → 5EST 01-12 10:34 → CVICU 01-12 16:52 → 5EST 01-26 22:35
PROVIDERS: ADMIT Family Medicine Adult Medicine; ATTEND Family Medicine Adult Medicine
PROC: 5A1955Z Respiratory Ventilation, Greater than 96 Consecutive Hours (ICD-10-PCS; principal; 2024-01-12)
PROC: 0BH17EZ Insertion of Endotracheal Airway into Trachea, Via Natural or Artificial Opening (ICD-10-PCS; 2024-01-12)
PROC: 4A10X4Z Monitoring of Central Nervous Electrical Activity, External Approach (ICD-10-PCS; 2024-01-12)
PROC: 05HY33Z Insertion of Infusion Device into Upper Vein, Percutaneous Approach (ICD-10-PCS; 2024-01-13)
PROC: 0B110F4 Bypass Trachea to Cutaneous with Tracheostomy Device, Open Approach (ICD-10-PCS; 2024-01-23)
PROC: 0GBJ0ZZ Excision of Thyroid Gland Isthmus, Open Approach (ICD-10-PCS; 2024-01-23)
PROC: 0DH68UZ Insertion of Feeding Device into Stomach, Via Natural or Artificial Opening Endoscopic (ICD-10-PCS; 2024-01-26)
PROC: 02HV33Z Insertion of Infusion Device into Superior Vena Cava, Percutaneous Approach (ICD-10-PCS; 2024-01-26)
PROC: B548ZZA Ultrasonography of Superior Vena Cava, Guidance (ICD-10-PCS; 2024-01-26)
DX: A41.9 Sepsis, unspecified organism (principal); J69.0 Pneumonitis due to inhalation of food and vomit; J96.01 Acute respiratory failure with hypoxia; I21.A1 Myocardial infarction type 2; G93.40 Encephalopathy, unspecified; N17.9 Acute kidney failure, unspecified; E87.20 Acidosis, unspecified; Z99.11 Dependence on respirator [ventilator] status; G81.94 Hemiplegia, unspecified affecting left nondominant side; G40.901 Epilepsy, unspecified, not intractable, with status epilepticus; E87.5 Hyperkalemia; E03.9 Hypothyroidism, unspecified; E87.6 Hypokalemia; R13.10 Dysphagia, unspecified; Z68.36 Body mass index [BMI] 36.0-36.9, adult; E66.9 Obesity, unspecified; D53.9 Nutritional anemia, unspecified; I10 Essential (primary) hypertension; K21.9 Gastro-esophageal reflux disease without esophagitis; R16.0 Hepatomegaly, not elsewhere classified; Z20.822 Contact with and (suspected) exposure to COVID-19; G40.401 Other generalized epilepsy and epileptic syndromes, not intractable, with status epilepticus; F41.9 Anxiety disorder, unspecified; K44.9 Diaphragmatic hernia without obstruction or gangrene; R65.20 Severe sepsis without septic shock; R14.0 Abdominal distension (gaseous); F32.9 Major depressive disorder, single episode, unspecified; F25.9 Schizoaffective disorder, unspecified; G47.00 Insomnia, unspecified; F01.50 Vascular dementia, unspecified severity, without behavioral disturbance, psychotic disturbance, mood disturbance, and anxiety; Z86.73 Personal history of transient ischemic attack (TIA), and cerebral infarction without residual deficits; Z93.1 Gastrostomy status
CPT/HCPCS: 31500; 36415; 36573; 36600; 71045; 74018; 74176; 76700; 80048; 80053; 80185; 80305; 80339; 81003; 82375; 82550; 82607; 82746; 82805; 82962; 83036; 83540; 83550; 83605; 83735; 83880; 84100; 84132; 84145; 84439; 84443; 84478; 84484; 85025; 86850; 86900; 87070; 87426; 87804; 93005; 93306; 93970; 94002; 94003; 94640; 95816; 99291; A6261; C1725; C1769; J0461; J0690; J0692; J1100; J1165; J1650; J1953; J2060; J2250; J2405; J2470; J2543; J2704; J2765; J3370; J3420; J3480; J3490; J7030; J7042; J7050; J7608; Q9963